=== PATIENT | male | born 1995 | race Caucasian/White ===

== ENCOUNTER 2020-09-25 18:12 | Emergency (ER) | payer BC, SELFPAY ==
--- NOTE | ~2020-09-25 | XR_ITS ---
EXAMINATION: XR hand RT min 3V INDICATION: Right hand swelling TECHNIQUE: Three views of the right hand are obtained. COMPARISON: None available FINDINGS: There is no fracture, dislocation, or subluxation. Bone alignment is normal. The joint spac es are maintained. There appears to be soft tissue swelling between the first and second metacarpals. No radiopaque foreign body is identified. IMPRESSION: 1. Soft tissue swelling without acute osseous abnormality. Reviewed, dictated and finalized at location A. ARY COOK
[2020-09-25 18:56] VITALS: BP 130/65; PULSE 65; RESP 14; TEMP 36.9; O2SAT 100
--- NOTE | 2020-09-25 19:13 | ED.EXTPRO ---
HPI - Extremity Problem General Chief complaint: Extremity Injury, Upper Stated complaint: Swelling in hand Time Seen by Provider: 09/25/20 19:13 Source: patient and RN notes reviewed Mode of arrival: ambulatory Limitations: no limitations History of Present Illness HPI Narrative: 25-year-old male presents with concern for right wrist pain, swelling. Reports he has always had a bump on the dorsal aspect of his wrist, however in the last several days it has become painful, red, swollen, hurts to flex or extend the wrist, pain radiates to digits 1, 2, 3. He denies any injury or trauma, reports he has been taking ibuprofen Complaint: extremity pain Related Data Allergies Allergy/AdvReac Type Severity Reaction Status Date / Time No Known Allergies Allergy Verified 09/25/20 19:03 Review of Systems Review of Systems: Narrative: CONSTITUTIONAL: Denies malaise, chills, sweats, or fever. CARDIOVASCULAR: Denies chest pain, palpitations SKIN: Denies open skin, abrasion MUSCULOSKELETAL: Reports right dorsal wrist pain, swelling, redness that radiates to digits 1 2 and 3 NEUROLOGIC: Denies numbness, weakness All systems reviewed & are unremarkable except as noted in HPI and below PMFSH Comments At time of signature, agree with nursing past medical, surgical, social and family history. There is no relevant family history pertinent to the presenting complaint Exam Narrative: Exam Narrative: GENERAL: Well-appearing, well-nourished, and in no acute distress. HEAD: Normocephalic, atraumatic. EYES: PERRLA, conjunctivae clear NECK: Supple. CHEST: Speaks in full sentences. No respiratory distress. HEART: Regular rate and rhythm. Normal and equal peripheral pulses. EXTREMITIES: Right hand, wrist, digits have normal strength and sensation, normal range of motion. Moderate dorsal wrist erythema, edema with palpable nodule, no ecchymosis. 5/5 strength with wrist and digit flexion and extension. Normal sensation with sensitivity to light touch and pain. Dorsal wrist tenderness. No open wounds, no skin tenting, no devitalized tissue or atrophy, no trophic changes, no obvious deformity, alignment normal, nearby joints and structures intact. Distal pulses palpable and equal bilaterally, skin warm, dry, pink. Capillary refill less than 3 seconds. SKIN: Warm, dry, no rash. NEURO: Alert and oriented x3. PSYCH: Normal mood and affect Course Course Emergency Course: Patient is aware of diagnosis, understands and agrees to treatment plan. Anticipatory guidance given. Patient agrees to follow-up as directed and is aware of reasons to seek care at the emergency department. Portions of this record may have been created with voice recognition software Vital Signs Vital signs: Vital Signs Temperature 98.5 F 09/25/20 18:56 Pulse Rate 65 09/25/20 18:56 Respiratory Rate 14 09/25/20 18:56 Blood Pressure 130/65 09/25/20 18:56 Pulse Oximetry 100 09/25/20 18:56 Temperature 98.5 F 09/25/20 18:56 Pulse Rate 65 09/25/20 18:56 Respiratory Rate 14 09/25/20 18:56 Blood Pressure 130/65 09/25/20 18:56 Pulse Oximetry 100 09/25/20 18:56 Reviewed. MDM - Extremity (Nontraumatic) MDM Narrative Medical decision making narrative: Patients pain is consistent with musculoskeletal etiology. No signs of neurological or vascular compromise on exam. Compartments and tissues are soft without signs of compartment syndrome. Pain is felt appropriate for further evaluation on an outpatient basis. Critical Care Time Critical Care Time Critical Care Time: No Discharge Plan Discharge Clinical Impression: Pain and swelling of right wrist Patient Disposition: Home, Self-Care Condition: Stable Instructions: Ganglion Cysts (ED) Additional Instructions: Avoid activities that cause pain until the pain subsides. Ice to the area 20-30 minutes 4-6 times a day Elastic wrap or orthopedic splint as directed for comfort for the next 5-7
== END 2020-09-25 19:49 | disposition home or self-care (01) ==
PROVIDERS: Emergency Provider Nurse Practitioner
DX: M25.531 Pain in right wrist (principal)
CPT/HCPCS: 73130; 99213; G0463

== ENCOUNTER 2020-10-01 09:15 | Emergency (ER) | payer BC, SELFPAY ==
[2020-10-01 09:22] VITALS: BP 136/78; PULSE 66; RESP 18; TEMP 36.3; O2SAT 98
--- NOTE | 2020-10-01 09:23 | ED_ITS ---
HPI - Extremity Injury (Upper) General Chief Complaint: Extremity Injury, Upper Stated Complaint: swellin to right hand Time Seen by Provider: 10/01/20 09:20 History of Present Illness HPI narrative: Patient seen in this clinic on the and was started on steroids and x-ray performed. Patient under assumption he could receive ultrasound of his right hand here but we do not provide that service. He states that he went to the ER the other evening but he was too late to receive ultraso und there. Patient does not want to be seen here today he wishes to go back to ED since he is still having swelling to his dorsal right hand with pain when he uses his thumb and 2nd and 3rd finger.He states that he is taking Ibuprofen and completed RX of prednisone 40 mg for 5 days.Patient denies any injury to his right hand. Related Data Home Medications Medication Instructions Recorded Confirmed ibuprofen 800 mg PO Q6H 10/01/20 10/01/20 Allergies Allergy/AdvReac Type Severity Reaction Status Date / Time No Known Allergies Allergy Verified 10/01/20 09:35 Review of Systems Review of Systems: All systems reviewed & are unremarkable except as noted in HPI and below PMFSH Comments At time of signature, agree with nursing past medical, surgical, social and family history. There is no relevant family history pertinent to the presenting complaint Course Vital Signs Vital signs: Vital Signs Temperature 36.3 C L 10/01/20 09:22 Pulse Rate 66 10/01/20 09:22 Respiratory Rate 18 10/01/20 09:22 Blood Pressure 136/78 10/01/20 09:22 Pulse Oximetry 98 10/01/20 09:22 Temperature 36.3 C L 10/01/20 09:22 Pulse Rate 66 10/01/20 09:22 Respiratory Rate 18 10/01/20 09:22 Blood Pressure 136/78 10/01/20 09:22 Pulse Oximetry 98 10/01/20 09:22 MDM - Extremity Injury (Upper) Medical Records Attestation: I reviewed the patient's medical records. Critical Care Time Critical Care Time Critical Care Time: No Discharge Plan Discharge Clinical Impression: Swelling of right hand Patient Disposition: Left Without Being Sn Triaged Prescriptions: No Action ibuprofen 800 mg Tablet 800 mg PO Q6H RF: 0 Follow-up/Referrals: UNKNOWN,DOCTOR [Primary Care Provider] - Time of Disposition: 09:33 Quality Jaleel Coma Scale Eyes: Open Verbal: Oriented and Alert Motor: Follows Commands [place] Coma Total Score: 15
== END 2020-10-01 09:33 | disposition left against medical advice (07) ==
PROVIDERS: Emergency Provider Registered Nurse
DX: Z53.21 Procedure and treatment not carried out due to patient leaving prior to being seen by health care provider (principal)
CPT/HCPCS: 99199

== ENCOUNTER 2022-04-01 09:21 | Emergency (ER) | payer BC, SELFPAY ==
--- NOTE | ~2022-04-01 | XR_ITS ---
EXAMINATION: XR hand RT min 3V DATE: 04/01/2022 09:52 INDICATION: Posttraumatic pain at the right third metacarpophalangeal joint. TECHNIQUE: Posteroanterior, oblique and lateral views of the right hand were obtained. COMPARISON: 09/25/2020 FINDINGS: Alignment is normal. No fracture. Joint spaces are normal. Soft tissue swelling dorsal to the head of the right third metacarpal. IMPRESSION: 1. No osseous abnormality. Reviewed, dictated and finalized at location A. IMPRESSION: 1. No osseous abnormality.
[2022-04-01 09:34] VITALS: BP 116/55; PULSE 60; RESP 20; TEMP 36.7; O2SAT 100
--- NOTE | 2022-04-01 09:53 | ED.UPPEXIN ---
HPI - Extremity Injury (Upper) General Chief Complaint: Extremity Injury, Upper Stated Complaint: Right Hand Injury Time Seen by Provider: 04/01/22 10:02 Source: patient and RN notes reviewed Mode of arrival: ambulatory Limitations: no limitations History of Present Illness HPI narrative: 26-year-old male presents with concern for right hand injury. Reports yesterday his right third digit was hyperextended causing pain at the PIP joint, and the dorsal hand below that digit. He also reports pain below the fourth digit. He reports swelling and tenderness. Reports he used ibuprofen and ice yesterday. He denies decreased sensation, strength. Reports pain with range of motion. MD complaint: injury to: right and hand Related Data Home Medications Medication Instructions Recorded Confirmed No Home Medications 04/01/22 04/01/22 Allergies Allergy/AdvReac Type Severity Reaction Status Date / Time No Known Allergies Allergy Verified 04/01/22 10:11 Review of Systems Review of Systems: CONSTITUTIONAL: Denies malaise, chills, sweats, or fever. CARDIOVASCULAR: Denies chest pain, palpitations, or edema. RESPIRATORY: Denies cough or dyspnea. SKIN: Denies rash or itching, bruising, redness MUSCULOSKELETAL: Reports right hand pain and swelling NEUROLOGIC: Denies numbness, weakness All systems reviewed & are unremarkable except as noted in HPI and below PMFSH Comments At time of signature, agree with nursing past medical, surgical, social and family history. There is no relevant family history pertinent to the presenting complaint Exam Narrative: GENERAL: Well-appearing, well-nourished, and in no acute distress. HEAD: Normocephalic EYES: PERRLA, conjunctivae clear NECK: Supple. CHEST: Speaks in full sentences. No respiratory distress. HEART: Regular rate and rhythm. Normal and equal peripheral pulses. EXTREMITIES: Right hand and digits of hand have normal sensation. 4/5 strength with third and fourth digit flexion, extension. Range of motion mildly limited to the third and fourth digit. No clubbing, cyanosis, or edema noted. Tenderness noted at the third PIP joint and below the third and fourth digits. Skin intact. Normal digital cascade with flexion of fingers, median, ulnar and radial nerve intact. Normal sensation of each side of finger. Can perform 'okay' sign, 'cross over finger test of index and middle fingers' and 'thumbs up' sign. No scissoring. Normal thumb opposition. Good capillary refill and radial pulse. Distal capillary refill less than 3 seconds. SKIN: Warn, dry, intact, pink. No rash NEURO: Alert and oriented x3. PSYCH: Normal mood and affect Course Course Emergency Course: Advised patient of x-ray results, advised to follow-up with Dr. Malik if symptoms are not improving by the end of the week or if they worsen. Patient is aware of diagnosis, understands and agrees to treatment plan. Anticipatory guidance given. Patient agrees to follow-up as directed and is aware of reasons to seek care at the emergency department. Portions of this record may have been created with voice recognition software Level of Care: Express Care Visit Vital Signs Vital signs: Vital Signs Temperature 98.1 F 04/01/22 09:34 Pulse Rate 60 04/01/22 09:34 Respiratory Rate 20 04/01/22 09:34 Blood Pressure 116/55 L 04/01/22 09:34 Pulse Oximetry 100 04/01/22 09:34 Oxygen Delivery Room Air 04/01/22 09:34 Temperature 98.1 F 04/01/22 09:34 Pulse Rate 60 04/01/22 09:34 Respiratory Rate 20 04/01/22 09:34 Blood Pressure 116/55 L 04/01/22 09:34 Pulse Oximetry 100 04/01/22 09:34 Oxygen Delivery Room Air 04/01/22 09:34 Reviewed. MDM - Extremity Injury (Upper) MDM Narrative Medical decision making narrative: Patients injury and pain is consistent with musculoskeletal etiology. No signs of neurological or vascular compromise on exam. Compartments and tissues are soft without signs of compartment syn
== END 2022-04-01 10:10 | disposition home or self-care (01) ==
PROVIDERS: Emergency Provider Nurse Practitioner
DX: S69.91XA Unspecified injury of right wrist, hand and finger(s), initial encounter (principal); X50.9XXA Other and unspecified overexertion or strenuous movements or postures, initial encounter; Z86.16 Personal history of COVID-19
CPT/HCPCS: 73130; 99213; G0463